=== PATIENT | male | born 1945 | race Caucasian/White ===

== ENCOUNTER 2018-10-08 14:27 | Inpatient (IN) | payer MEDICARE, BC ==
[2018-10-08 15:15] LABS: VENOUS BASE EXCESS -0.3 (-2.0-2.0); VENOUS HCO3 25.7 MEQ/L (23.0-27.0); VENOUS O2 SATURATION 63.1 % (60.0-80.0); VENOUS PARTIAL PRESSURE CO2 47.6 mmHg (38.0-50.0); VENOUS PARTIAL PRESSURE O2 37.6 mmHg (30.0-50.0); VENOUS PH 7.351 UNITS (7.330-7.430); VENOUS STANDARD HCO3 23.4 MEQ/L; VENOUS TOTAL CO2 27.2 MEQ/L (24.0-28.0)
[2018-10-08 15:23] LABS: EOS # 0.2 10^3/uL (0.0-0.50); EOS % 4.8 % (0.0-3.0); HEMATOCRIT 39.8 % (42.0-52.0); HEMOGLOBIN 12.9 g/dl (13.5-17.5); IMMATURE GRANULOCYTE % 0.6 % (0-3.0); LYMPH # 0.9 10^3/uL (1.5-4.5); LYMPH % 29.2 % (24.0-44.0); MEAN CORPUSCULAR HEMOGLOBIN 30.1 pg (27.0-33.0); MEAN CORPUSCULAR HGB CONC 32.4 g/dl (32.0-36.5); MONO # 0.4 10^3/uL (0.0-0.8); MONO % 12.4 % (0.0-5.0); NEUTROPHILS # 1.6 10^3/uL (1.8-7.7); RED BLOOD COUNT 4.28 10^6/uL (4.30-6.10); RED CELL DISTRIBUTION WIDTH 17.7 % (11.5-14.5); WHITE BLOOD COUNT 3.2 10^3/uL (4.0-10.0)
[2018-10-08 15:32] LABS: PROTHROMBIN TIME 15.4 SECONDS (12.1-14.4)
[2018-10-08 15:47] LABS: PLATELET COUNT, AUTOMATED 68 10^3/uL (150-450)
[2018-10-08 15:49] LABS: IMMATURE PLATELET FRACTION % 2.8 % (0.0-10.9)
[2018-10-08 15:51] LABS: LACTIC ACID SEPSIS PROTOCOL 2.5 MMOL/L (0.4-2.0)
[2018-10-08 15:53] LABS: ALBUMIN 3.1 GM/DL (3.2-5.2); ALBUMIN/GLOBULIN RATIO 0.79 (1.00-1.93); ALKALINE PHOSPHATASE 110 U/L (45-117); ALT/SGPT 41 U/L (12-78); ANION GAP 7 MEQ/L (8-16); AST/SGOT 49 U/L (7-37); BILIRUBIN,DIRECT 0.3 MG/DL (0.0-0.2); BILIRUBIN,TOTAL 0.7 MG/DL (0.2-1.0); BLOOD UREA NITROGEN 6 MG/DL (7-18); CALCIUM LEVEL 8.3 MG/DL (8.8-10.2); CARBON DIOXIDE LEVEL 27 MEQ/L (21-32); CHLORIDE LEVEL 95 MEQ/L (98-107); CPK CREATINE PHOSPHOKINASE 53 U/L (39-308); CREATININE FOR GFR 0.66 MG/DL (0.70-1.30); GLOMERULAR FILTRATION RATE > 60.0 (>42); GLUCOSE, FASTING 214 MG/DL (70-100); POTASSIUM SERUM 4.5 MEQ/L (3.5-5.1); SODIUM LEVEL 129 MEQ/L (136-145); THYROXINE (T4) 6.3 UG/DL (4.5-12.0); TROPONIN I < 0.02 NG/ML (< 0.10)
[2018-10-08] MEDS: LevoFLOXacin IV 750 MG in APPROPRIATE DILUENT 1 EA IV (15:56)
[2018-10-08] MEDS: NS IV (16:02)
[2018-10-08] MEDS: DILUENT IV (16:02)
[2018-10-08] MEDS ORDERED: ISOVUE-370 76% 100ML VIAL (Q9967) As Ordered (16:10)
[2018-10-08] MEDS: metFORMIN XR 500MG TAB *GLUCOPHAGE XR PO (18:00)
[2018-10-08] MEDS: NS 1,000 ML IV (18:30)
[2018-10-08] MEDS ORDERED: methylPREDNISolone INJ 125 MG/2 ML VIAL (J2930) IV (19:15)
[2018-10-08] MEDS ORDERED: PIPERACILLIN/TAZOBACTAM SOD 3.375 GM in D5W MINI-BAG PLUS 50 ML IV (19:15)
[2018-10-08] MEDS: ACETAMINOPHEN TAB 650MG DOSE (2X325MG) PO (20:28)
[2018-10-08] MEDS: methylPREDNISolone INJ 125 MG/2 ML VIAL (J2930) IV (22:26)
[2018-10-08] MEDS: PIPERACILLIN/TAZOBACTAM SOD 3.375 GM in D5W MINI-BAG PLUS 50 ML IV (22:28)
[2018-10-08] MEDS: OMEGA-3 1000MG CAPSULE PO (22:36)
[2018-10-09 00:31] LABS: LACTIC ACID SEPSIS PROTOCOL 1.4 MMOL/L (0.4-2.0)
[2018-10-09 00:36] LABS: BASO % 0.8 % (0.0-1.0); EOS # 0.1 10^3/uL (0.0-0.50); EOS % 3.1 % (0.0-3.0); HEMATOCRIT 38.7 % (42.0-52.0); HEMOGLOBIN 12.7 g/dl (13.5-17.5); IMMATURE GRANULOCYTE % 0.4 % (0-3.0); LYMPH # 0.4 10^3/uL (1.5-4.5); LYMPH % 14.2 % (24.0-44.0); MEAN CORPUSCULAR HEMOGLOBIN 30.1 pg (27.0-33.0); MEAN CORPUSCULAR HGB CONC 32.8 g/dl (32.0-36.5); MEAN CORPUSCULAR VOLUME 91.7 fl (80.0-96.0); MONO # 0.1 10^3/uL (0.0-0.8); MONO % 5.1 % (0.0-5.0); NEUTROPHILS # 1.9 10^3/uL (1.8-7.7); NEUTROPHILS % 76.4 % (36.0-66.0); RED BLOOD COUNT 4.22 10^6/uL (4.30-6.10); RED CELL DISTRIBUTION WIDTH 17.5 % (11.5-14.5); WHITE BLOOD COUNT 2.5 10^3/uL (4.0-10.0)
[2018-10-09 00:37] LABS: PLATELET COUNT, AUTOMATED 60 10^3/uL (150-450)
[2018-10-09 00:41] LABS: ANION GAP 7 MEQ/L (8-16); BLOOD UREA NITROGEN 6 MG/DL (7-18); CALCIUM LEVEL 7.9 MG/DL (8.8-10.2); CARBON DIOXIDE LEVEL 27 MEQ/L (21-32); CHLORIDE LEVEL 99 MEQ/L (98-107); CREATININE FOR GFR 0.64 MG/DL (0.70-1.30); GLOMERULAR FILTRATION RATE > 60.0 (>42); GLUCOSE, FASTING 272 MG/DL (70-100); POTASSIUM SERUM 4.7 MEQ/L (3.5-5.1); RHEUMATOID FACTOR QUANT < 10.0 IU/ML (<15.0); SODIUM LEVEL 133 MEQ/L (136-145)
[2018-10-09 01:05] LABS: ERYTHROCYTE SEDIMENTATION RATE 6 mm/hr (0-20)
[2018-10-09] MEDS: PIPERACILLIN/TAZOBACTAM SOD 3.375 GM in D5W MINI-BAG PLUS 50 ML IV ×4 (03:23→21:58)
[2018-10-09] MEDS: NS 1,000 ML IV (04:30)
[2018-10-09] MEDS: methylPREDNISolone INJ 125 MG/2 ML VIAL (J2930) IV ×3 (05:42→21:58)
[2018-10-09] MEDS ORDERED: GLUCAGON FOR INJ 1 MG VIAL (J1610) SC (08:15)
[2018-10-09] MEDS ORDERED: GLUCOSE 4 GM CHEW TABLET PO (08:15)
[2018-10-09] MEDS ORDERED: DEXTROSE 50% 50 ML SYRINGE IV (08:15)
[2018-10-09 08:46] LABS: RETIC HEMOGLOBIN EQUIVALENT 33.4 pg (24-36); RETICULOCYTE # 105.9 10^9/L (17-77); RETICULOCYTE % 2.5 % (0.5-1.5)
[2018-10-09] MEDS: OMEGA-3 1000MG CAPSULE PO ×3 (08:51→21:57)
[2018-10-09] MEDS: IRBESARTAN 150 MG TAB PO (08:51)
[2018-10-09 08:52] LABS: REASON FOR REVIEW PLATELET MORPHOLOGY; SLIDE REVIEW Report; SOURCE PERIPHERAL SMEAR
[2018-10-09] MEDS: CALCIUM GLUCONATE 1,000 MG in D5W MINI-BAG PLUS 100 ML IV (08:52)
[2018-10-09] MEDS: ATORVASTATIN 10 MG TAB PO (08:52)
[2018-10-09] MEDS: FUROSEMIDE 40 MG/4 ML VIAL (J1940) IV (08:52)
[2018-10-09] MEDS: OMEPRAZOLE 20 MG CAP PO (08:52)
[2018-10-09] MEDS: ENOXAPARIN 40 MG/0.4 ML SYRINGE (J1650) SC (08:52)
[2018-10-09 09:09] LABS: LDH LACTATE DEHYDROGENASE 250 U/L (87-241)
[2018-10-09 11:59] LABS: BEDSIDE GLUCOSE 391 MG/DL (83-110)
[2018-10-09] MEDS: HumaLOG INSULIN (NovoLOG) PER UNIT SC ×3 (12:50→22:11)
[2018-10-09] MEDS: diazePAM 5 MG TAB PO (15:44)
[2018-10-09 17:24] LABS: BEDSIDE GLUCOSE 384 MG/DL (83-110)
[2018-10-09 18:47] LABS: C REACTIVE PROTEIN QUANTITATIV < 0.30 MG/DL (0.00-0.30)
[2018-10-09 18:53] LABS: FERRITIN 24 NG/ML (26-388); IRON (FE) 25 UG/DL (65-175); PERCENT SATURATION 6.3 % (19.7-50.0); TOTAL IRON BINDING CAPACITY 394 UG/DL (250-450)
[2018-10-09 19:08] LABS: VITAMIN B12 LEVEL 1025 PG/ML (247-911)
[2018-10-09 19:09] LABS: FOLATE 13.7 NG/ML (>5.4)
[2018-10-09] MEDS ORDERED: HumaLOG INSULIN (NovoLOG) PER UNIT SC (21:00)
[2018-10-09 22:12] LABS: BEDSIDE GLUCOSE 310 MG/DL (83-110)
[2018-10-10] MEDS: ACETAMINOPHEN TAB 650MG DOSE (2X325MG) PO ×3 (02:44→18:25)
[2018-10-10] MEDS: PIPERACILLIN/TAZOBACTAM SOD 3.375 GM in D5W MINI-BAG PLUS 50 ML IV ×3 (02:45→15:55)
[2018-10-10] MEDS: methylPREDNISolone INJ 125 MG/2 ML VIAL (J2930) IV (05:09)
[2018-10-10 05:44] LABS: HEMATOCRIT 38.7 % (42.0-52.0); HEMOGLOBIN 12.6 g/dl (13.5-17.5); MEAN CORPUSCULAR HEMOGLOBIN 29.7 pg (27.0-33.0); MEAN CORPUSCULAR HGB CONC 32.6 g/dl (32.0-36.5); MEAN CORPUSCULAR VOLUME 91.3 fl (80.0-96.0); RED BLOOD COUNT 4.24 10^6/uL (4.30-6.10); RED CELL DISTRIBUTION WIDTH 17.4 % (11.5-14.5); WHITE BLOOD COUNT 7.5 10^3/uL (4.0-10.0)
[2018-10-10 05:47] LABS: IMMATURE PLATELET FRACTION % 2.3 % (0.0-10.9); PLATELET COUNT, AUTOMATED 70 10^3/uL (150-450)
[2018-10-10 06:13] LABS: ANION GAP 8 MEQ/L (8-16); BLOOD UREA NITROGEN 12 MG/DL (7-18); CALCIUM LEVEL 8.1 MG/DL (8.8-10.2); CARBON DIOXIDE LEVEL 27 MEQ/L (21-32); CHLORIDE LEVEL 97 MEQ/L (98-107); CREATININE FOR GFR 0.72 MG/DL (0.70-1.30); GLOMERULAR FILTRATION RATE > 60.0 (>42); GLUCOSE, FASTING 282 MG/DL (70-100); MAGNESIUM LEVEL 1.7 MG/DL (1.8-2.4); POTASSIUM SERUM 4.1 MEQ/L (3.5-5.1); SODIUM LEVEL 132 MEQ/L (136-145)
[2018-10-10 08:06] LABS: HAPTOGLOBIN 73 mg/dL (34-200)
[2018-10-10] MEDS: HumaLOG INSULIN (NovoLOG) PER UNIT SC ×4 (09:17→20:57)
[2018-10-10] MEDS: OMEPRAZOLE 20 MG CAP PO (09:17)
[2018-10-10] MEDS: FERROUS SULFATE 325MG TAB PO (09:17)
[2018-10-10] MEDS: IRBESARTAN 150 MG TAB PO (09:18)
[2018-10-10] MEDS: ATORVASTATIN 10 MG TAB PO (09:18)
[2018-10-10] MEDS: OMEGA-3 1000MG CAPSULE PO ×3 (09:18→20:56)
[2018-10-10] MEDS: ASCORBIC ACID 500 MG TAB PO (09:18)
[2018-10-10] MEDS: MAG SULF 1GM/100ML (MAG RUN) 1 GM in APPROPRIATE DILUENT 1 EA IV (09:18)
[2018-10-10 12:31] LABS: BEDSIDE GLUCOSE 292 MG/DL (83-110)
[2018-10-10] MEDS: methylPREDNISolone INJ 40 MG/1 ML VIAL (J2920) IV ×2 (12:48→20:56)
[2018-10-10] MEDS: diazePAM 5 MG TAB PO (12:50)
[2018-10-10] MEDS: SLF 3 ML SYR IV ×2 (12:50→20:58)
[2018-10-10 14:16] LABS: ANTI SCLERODERMA ANTIBODIES <0.2 AI (0.0-0.9)
[2018-10-10 14:16] LABS: ANTI CENTROMERE ANTIBODY <0.2 AI (0.0-0.9); ANTI DOUBLE STRAND-DNA AB 2 IU/mL (0-9); ANTINUCLEAR ANTIBODIES DIRECT Negative (Negative); SSA SJOGRENS A <0.2 AI (0.0-0.9); SSB SJOGRENS B <0.2 AI (0.0-0.9)
[2018-10-10 17:28] LABS: BEDSIDE GLUCOSE 397 MG/DL (83-110)
[2018-10-10] MEDS: CALCIUM GLUCONATE 1,000 MG in D5W MINI-BAG PLUS 100 ML IV (18:44)
[2018-10-10 20:35] LABS: BEDSIDE GLUCOSE 396 MG/DL (83-110)
[2018-10-10] MEDS: NEFAZODONE PO (20:56)
[2018-10-11] MEDS: ACETAMINOPHEN TAB 650MG DOSE (2X325MG) PO ×3 (02:53→20:10)
[2018-10-11] MEDS: SLF 3 ML SYR IV ×6 (05:17→21:03)
[2018-10-11 06:03] LABS: BEDSIDE GLUCOSE 274 MG/DL (83-110)
[2018-10-11 06:39] LABS: HEMATOCRIT 36.8 % (42.0-52.0); HEMOGLOBIN 11.9 g/dl (13.5-17.5); MEAN CORPUSCULAR HEMOGLOBIN 30.1 pg (27.0-33.0); MEAN CORPUSCULAR HGB CONC 32.3 g/dl (32.0-36.5); MEAN CORPUSCULAR VOLUME 93.2 fl (80.0-96.0); RED BLOOD COUNT 3.95 10^6/uL (4.30-6.10); RED CELL DISTRIBUTION WIDTH 17.5 % (11.5-14.5); WHITE BLOOD COUNT 7.2 10^3/uL (4.0-10.0)
[2018-10-11 06:40] LABS: PLATELET COUNT, AUTOMATED 66 10^3/uL (150-450)
[2018-10-11 06:41] LABS: IMMATURE PLATELET FRACTION % 2.6 % (0.0-10.9)
[2018-10-11 07:00] LABS: ANION GAP 6 MEQ/L (8-16); BLOOD UREA NITROGEN 15 MG/DL (7-18); CALCIUM LEVEL 8.1 MG/DL (8.8-10.2); CARBON DIOXIDE LEVEL 29 MEQ/L (21-32); CHLORIDE LEVEL 97 MEQ/L (98-107); CREATININE FOR GFR 0.61 MG/DL (0.70-1.30); GLOMERULAR FILTRATION RATE > 60.0 (>42); GLUCOSE, FASTING 248 MG/DL (70-100); MAGNESIUM LEVEL 1.8 MG/DL (1.8-2.4); POTASSIUM SERUM 4.5 MEQ/L (3.5-5.1); SODIUM LEVEL 132 MEQ/L (136-145)
[2018-10-11] MEDS: HumaLOG INSULIN (NovoLOG) PER UNIT SC ×4 (09:16→20:11)
[2018-10-11] MEDS: CALCIUM GLUCONATE 1,000 MG in D5W MINI-BAG PLUS 100 ML IV (09:17)
[2018-10-11] MEDS: predniSONE 20 MG TAB PO (09:18)
[2018-10-11] MEDS: OMEPRAZOLE 20 MG CAP PO (09:18)
[2018-10-11] MEDS: OMEGA-3 1000MG CAPSULE PO ×3 (09:19→20:11)
[2018-10-11] MEDS: FERROUS SULFATE 325MG TAB PO (09:19)
[2018-10-11] MEDS: ATORVASTATIN 10 MG TAB PO (09:19)
[2018-10-11] MEDS: MAGNESIUM GLUCONATE 500 MG TAB PO ×2 (09:20→20:10)
[2018-10-11] MEDS: IRBESARTAN 150 MG TAB PO (09:20)
[2018-10-11] MEDS: ASCORBIC ACID 500 MG TAB PO (09:21)
[2018-10-11] MEDS: NEFAZODONE PO ×2 (09:21→20:09)
[2018-10-11 12:05] LABS: BEDSIDE GLUCOSE 290 MG/DL (83-110)
[2018-10-11] MEDS: FUROSEMIDE 40 MG/4 ML VIAL (J1940) IV (15:59)
[2018-10-11 16:38] LABS: NT-PRO BNP 314 PG/ML (<125)
[2018-10-11 16:54] LABS: BEDSIDE GLUCOSE 402 MG/DL (83-110)
[2018-10-11 19:58] LABS: BEDSIDE GLUCOSE 363 MG/DL (83-110)
[2018-10-12] MEDS: ACETAMINOPHEN TAB 650MG DOSE (2X325MG) PO ×3 (00:55→22:20)
[2018-10-12] MEDS: SLF 3 ML SYR IV ×4 (04:00→22:22)
[2018-10-12 05:57] LABS: MEAN CORPUSCULAR HEMOGLOBIN 29.8 pg (27.0-33.0); MEAN CORPUSCULAR HGB CONC 32.4 g/dl (32.0-36.5); MEAN CORPUSCULAR VOLUME 91.8 fl (80.0-96.0); RED BLOOD COUNT 4.03 10^6/uL (4.30-6.10); RED CELL DISTRIBUTION WIDTH 17.6 % (11.5-14.5); WHITE BLOOD COUNT 5.6 10^3/uL (4.0-10.0)
[2018-10-12 06:09] LABS: PLATELET COUNT, AUTOMATED 54 10^3/uL (150-450); POS COUNT POS FLAG
[2018-10-12 06:23] LABS: ANION GAP 6 MEQ/L (8-16); BLOOD UREA NITROGEN 16 MG/DL (7-18); CALCIUM LEVEL 7.9 MG/DL (8.8-10.2); CARBON DIOXIDE LEVEL 31 MEQ/L (21-32); CHLORIDE LEVEL 96 MEQ/L (98-107); CREATININE FOR GFR 0.67 MG/DL (0.70-1.30); GLOMERULAR FILTRATION RATE > 60.0 (>42); GLUCOSE, FASTING 190 MG/DL (70-100); MAGNESIUM LEVEL 1.8 MG/DL (1.8-2.4); POTASSIUM SERUM 4.2 MEQ/L (3.5-5.1); SODIUM LEVEL 133 MEQ/L (136-145)
[2018-10-12] MEDS ORDERED: CALCIUM CARBONATE 500 MG CHEW U/D PO (08:00)
[2018-10-12] MEDS: OMEPRAZOLE 20 MG CAP PO (09:14)
[2018-10-12] MEDS: ASCORBIC ACID 500 MG TAB PO (09:14)
[2018-10-12] MEDS: ATORVASTATIN 10 MG TAB PO (09:14)
[2018-10-12] MEDS: OMEGA-3 1000MG CAPSULE PO ×3 (09:14→22:19)
[2018-10-12] MEDS: MAGNESIUM GLUCONATE 500 MG TAB PO ×2 (09:15→22:20)
[2018-10-12] MEDS: predniSONE 20 MG TAB PO (09:15)
[2018-10-12] MEDS: FERROUS SULFATE 325MG TAB PO (09:15)
[2018-10-12] MEDS: IRBESARTAN 150 MG TAB PO (09:15)
[2018-10-12] MEDS: NEFAZODONE PO ×2 (09:15→21:00)
[2018-10-12] MEDS: HumaLOG INSULIN (NovoLOG) PER UNIT SC ×4 (09:16→22:50)
[2018-10-12] MEDS: diazePAM 5 MG TAB PO ×3 (09:18→22:20)
[2018-10-12 12:34] LABS: BEDSIDE GLUCOSE 258 MG/DL (83-110)
[2018-10-12 17:32] LABS: BEDSIDE GLUCOSE 291 MG/DL (83-110)
[2018-10-12] MEDS: MULTIVITAMINS/MINERALS THERAP 1 TAB PO (18:24)
[2018-10-12] MEDS: THIAMINE 100 MG TAB PO (18:25)
[2018-10-12 22:16] LABS: BEDSIDE GLUCOSE 280 MG/DL (83-110)
[2018-10-12] MEDS: CALCIUM CARBONATE 500 MG CHEW U/D PO (22:21)
[2018-10-12] MEDS: RESTASIS (PATIENT'S OWN MED) OU (23:06)
[2018-10-13 05:17] LABS: HEMOGLOBIN 12.3 g/dl (13.5-17.5); MEAN CORPUSCULAR HEMOGLOBIN 29.9 pg (27.0-33.0); MEAN CORPUSCULAR HGB CONC 32.4 g/dl (32.0-36.5); MEAN CORPUSCULAR VOLUME 92.5 fl (80.0-96.0); PLATELET COUNT, AUTOMATED 55 10^3/uL (150-450); RED BLOOD COUNT 4.11 10^6/uL (4.30-6.10); RED CELL DISTRIBUTION WIDTH 17.2 % (11.5-14.5); WHITE BLOOD COUNT 4.1 10^3/uL (4.0-10.0)
[2018-10-13 05:18] LABS: IMMATURE PLATELET FRACTION % 2.3 % (0.0-10.9)
[2018-10-13 05:40] LABS: ANION GAP 6 MEQ/L (8-16); BLOOD UREA NITROGEN 14 MG/DL (7-18); CALCIUM LEVEL 8.6 MG/DL (8.8-10.2); CARBON DIOXIDE LEVEL 30 MEQ/L (21-32); CHLORIDE LEVEL 97 MEQ/L (98-107); GLOMERULAR FILTRATION RATE > 60.0 (>42); GLUCOSE, FASTING 173 MG/DL (70-100); MAGNESIUM LEVEL 1.9 MG/DL (1.8-2.4); POTASSIUM SERUM 4.1 MEQ/L (3.5-5.1); SODIUM LEVEL 133 MEQ/L (136-145)
[2018-10-13] MEDS: SLF 3 ML SYR IV ×3 (05:45→21:10)
[2018-10-13] MEDS: predniSONE 10 MG TAB PO (08:38)
[2018-10-13] MEDS: ACETAMINOPHEN TAB 650MG DOSE (2X325MG) PO ×3 (08:38→23:57)
[2018-10-13] MEDS: NEFAZODONE PO ×2 (08:38→21:14)
[2018-10-13] MEDS: THIAMINE 100 MG TAB PO (08:39)
[2018-10-13] MEDS: MULTIVITAMINS/MINERALS THERAP 1 TAB PO (08:39)
[2018-10-13] MEDS: ASCORBIC ACID 500 MG TAB PO (08:39)
[2018-10-13] MEDS: MAGNESIUM GLUCONATE 500 MG TAB PO ×2 (08:39→21:10)
[2018-10-13] MEDS: diazePAM 5 MG TAB PO ×2 (08:39→21:15)
[2018-10-13] MEDS: CALCIUM CARBONATE 500 MG CHEW U/D PO ×2 (08:39→21:09)
[2018-10-13] MEDS: RESTASIS (PATIENT'S OWN MED) OU ×2 (08:40→21:11)
[2018-10-13] MEDS: FERROUS SULFATE 325MG TAB PO (08:40)
[2018-10-13] MEDS: OMEPRAZOLE 20 MG CAP PO (08:40)
[2018-10-13] MEDS: ATORVASTATIN 10 MG TAB PO (08:40)
[2018-10-13] MEDS: OMEGA-3 1000MG CAPSULE PO ×3 (08:40→21:10)
[2018-10-13] MEDS: IRBESARTAN 150 MG TAB PO (08:40)
[2018-10-13] MEDS: HumaLOG INSULIN (NovoLOG) PER UNIT SC ×4 (08:41→21:09)
[2018-10-13 08:45] LABS: ALBUMIN 2.7 GM/DL (3.2-5.2)
[2018-10-13] MEDS ORDERED: FUROSEMIDE 40 MG TAB PO (16:45)
[2018-10-13 17:09] LABS: BEDSIDE GLUCOSE 348 MG/DL (83-110)
[2018-10-13 17:49] LABS: LIPASE 187 U/L (73-393)
[2018-10-13 20:39] LABS: BEDSIDE GLUCOSE 336 MG/DL (83-110)
[2018-10-13] MEDS: predniSONE 20 MG TAB PO (21:09)
[2018-10-13 22:10] LABS: ABG HCO3 28.9 MEQ/L (22.0-26.0); ABG O2 SATURATION 89.5 % (95.0-99.0); ABG PARTIAL PRESSURE CO2 44.7 mmHg (35.0-45.0); ABG PARTIAL PRESSURE O2 60.9 mmHg (75.0-100.0); ABG STANDARD HCO3 27.9 MEQ/L (22.0-26.0); ABG TOTAL CO2 30.3 MEQ/L (23.0-31.0); ABG pH (ARTERIAL) 7.429 UNITS (7.350-7.450)
[2018-10-14 04:59] LABS: HEMATOCRIT 39.7 % (42.0-52.0); HEMOGLOBIN 12.9 g/dl (13.5-17.5); MEAN CORPUSCULAR HGB CONC 32.5 g/dl (32.0-36.5); MEAN CORPUSCULAR VOLUME 92.3 fl (80.0-96.0); PLATELET COUNT, AUTOMATED 55 10^3/uL (150-450); RED CELL DISTRIBUTION WIDTH 17.2 % (11.5-14.5); WHITE BLOOD COUNT 3.9 10^3/uL (4.0-10.0)
[2018-10-14 05:21] LABS: ANION GAP 7 MEQ/L (8-16); BLOOD UREA NITROGEN 15 MG/DL (7-18); CALCIUM LEVEL 8.2 MG/DL (8.8-10.2); CARBON DIOXIDE LEVEL 29 MEQ/L (21-32); CHLORIDE LEVEL 97 MEQ/L (98-107); CREATININE FOR GFR 0.56 MG/DL (0.70-1.30); GLOMERULAR FILTRATION RATE > 60.0 (>42); GLUCOSE, FASTING 232 MG/DL (70-100); MAGNESIUM LEVEL 1.8 MG/DL (1.8-2.4); POTASSIUM SERUM 4.4 MEQ/L (3.5-5.1); SODIUM LEVEL 133 MEQ/L (136-145)
[2018-10-14] MEDS: SLF 3 ML SYR IV ×3 (06:00→20:27)
[2018-10-14] MEDS: IRBESARTAN 150 MG TAB PO (09:25)
[2018-10-14] MEDS: ASCORBIC ACID 500 MG TAB PO (09:25)
[2018-10-14] MEDS: MULTIVITAMINS/MINERALS THERAP 1 TAB PO (09:25)
[2018-10-14] MEDS: ATORVASTATIN 10 MG TAB PO (09:25)
[2018-10-14] MEDS: predniSONE 20 MG TAB PO ×2 (09:25→20:25)
[2018-10-14] MEDS: THIAMINE 100 MG TAB PO (09:25)
[2018-10-14] MEDS: OMEGA-3 1000MG CAPSULE PO ×3 (09:26→20:24)
[2018-10-14] MEDS: FERROUS SULFATE 325MG TAB PO (09:26)
[2018-10-14] MEDS: OMEPRAZOLE 20 MG CAP PO (09:26)
[2018-10-14] MEDS: NEFAZODONE PO ×2 (09:26→20:26)
[2018-10-14] MEDS: CALCIUM CARBONATE 500 MG CHEW U/D PO ×2 (09:26→20:27)
[2018-10-14] MEDS: MAGNESIUM GLUCONATE 500 MG TAB PO ×2 (09:26→20:25)
[2018-10-14] MEDS: HumaLOG INSULIN (NovoLOG) PER UNIT SC ×4 (09:27→20:25)
[2018-10-14] MEDS: RESTASIS (PATIENT'S OWN MED) OU ×2 (09:27→20:26)
[2018-10-14] MEDS: diazePAM 5 MG TAB PO ×2 (09:39→18:48)
[2018-10-14] MEDS: ACETAMINOPHEN TAB 650MG DOSE (2X325MG) PO ×3 (09:39→23:27)
[2018-10-14 12:31] LABS: BEDSIDE GLUCOSE 227 MG/DL (83-110)
[2018-10-14 18:35] LABS: BEDSIDE GLUCOSE 304 MG/DL (83-110)
[2018-10-14] MEDS: FOLIC ACID 1 MG TAB PO (18:49)
[2018-10-14 20:10] LABS: BEDSIDE GLUCOSE 324 MG/DL (83-110)
[2018-10-15] MEDS: diazePAM 5 MG TAB PO ×2 (01:56→10:01)
[2018-10-15] MEDS: SLF 3 ML SYR IV ×3 (05:17→22:00)
[2018-10-15 05:23] LABS: HEMOGLOBIN 12.8 g/dl (13.5-17.5); MEAN CORPUSCULAR HEMOGLOBIN 30.5 pg (27.0-33.0); MEAN CORPUSCULAR HGB CONC 32.8 g/dl (32.0-36.5); MEAN CORPUSCULAR VOLUME 93.1 fl (80.0-96.0); RED BLOOD COUNT 4.19 10^6/uL (4.30-6.10); RED CELL DISTRIBUTION WIDTH 17.2 % (11.5-14.5); WHITE BLOOD COUNT 5.4 10^3/uL (4.0-10.0)
[2018-10-15 05:27] LABS: PLATELET COUNT, AUTOMATED 52 10^3/uL (150-450)
[2018-10-15 05:28] LABS: IMMATURE PLATELET FRACTION % 3.2 % (0.0-10.9)
[2018-10-15 05:50] LABS: ANION GAP 6 MEQ/L (8-16); BLOOD UREA NITROGEN 17 MG/DL (7-18); CALCIUM LEVEL 8.1 MG/DL (8.8-10.2); CARBON DIOXIDE LEVEL 28 MEQ/L (21-32); CHLORIDE LEVEL 98 MEQ/L (98-107); GLOMERULAR FILTRATION RATE > 60.0 (>42); GLUCOSE, FASTING 271 MG/DL (70-100); MAGNESIUM LEVEL 1.8 MG/DL (1.8-2.4); POTASSIUM SERUM 4.8 MEQ/L (3.5-5.1); SODIUM LEVEL 132 MEQ/L (136-145)
[2018-10-15] MEDS: HumaLOG INSULIN (NovoLOG) PER UNIT SC ×2 (07:30→12:25)
[2018-10-15] MEDS: NEFAZODONE PO (09:30)
[2018-10-15] MEDS: OMEGA-3 1000MG CAPSULE PO ×2 (09:36→15:17)
[2018-10-15] MEDS: CALCIUM CARBONATE 500 MG CHEW U/D PO (09:36)
[2018-10-15] MEDS: THIAMINE 100 MG TAB PO (09:36)
[2018-10-15] MEDS: RESTASIS (PATIENT'S OWN MED) OU ×2 (09:36→21:33)
[2018-10-15] MEDS: OMEPRAZOLE 20 MG CAP PO (09:36)
[2018-10-15] MEDS: ASCORBIC ACID 500 MG TAB PO (09:36)
[2018-10-15] MEDS: MULTIVITAMINS/MINERALS THERAP 1 TAB PO (09:36)
[2018-10-15] MEDS: FOLIC ACID 1 MG TAB PO (09:37)
[2018-10-15] MEDS: FERROUS SULFATE 325MG TAB PO (09:37)
[2018-10-15] MEDS: IRBESARTAN 150 MG TAB PO (09:37)
[2018-10-15] MEDS: MAGNESIUM GLUCONATE 500 MG TAB PO (09:37)
[2018-10-15] MEDS: ATORVASTATIN 10 MG TAB PO (09:37)
[2018-10-15] MEDS: predniSONE 20 MG TAB PO (09:37)
[2018-10-15] MEDS: ACETAMINOPHEN TAB 650MG DOSE (2X325MG) PO ×3 (10:01→22:55)
[2018-10-15 11:39] LABS: BEDSIDE GLUCOSE 251 MG/DL (83-110)
[2018-10-15 17:09] LABS: BEDSIDE GLUCOSE 366 MG/DL (83-110)
[2018-10-15] MEDS ORDERED: SCOPOLAMINE 1MG TRANSDERMAL PATCH TOP (17:30)
[2018-10-15] MEDS: LORazepam 1 MG TAB PO (22:46)
[2018-10-15] MEDS: MORPHINE 10MG/0.5ML ORAL CONCENTRATE SOLUTION U/D SL (23:57)
[2018-10-16] MEDS: LORazepam 1 MG TAB PO (04:05)
[2018-10-16] MEDS: MORPHINE 10MG/0.5ML ORAL CONCENTRATE SOLUTION U/D SL (04:06)
[2018-10-16] MEDS: SLF 3 ML SYR IV (05:34)
[2018-10-16] MEDS ORDERED: ENTER DRUG NAME HERE (PATIENT'S OWN MED) PO (09:00)
[2018-10-16] MEDS: RESTASIS (PATIENT'S OWN MED) OU (09:00)
[2018-10-16] MEDS: diazePAM 5 MG TAB PO (10:31)
[2018-10-16] MEDS: ACETAMINOPHEN TAB 650MG DOSE (2X325MG) PO (10:31)
== END 2018-10-16 14:45 | disposition hospice, home (50) | DRG 196 ==
LOC: M PCU 10-14 15:14 → M ED 14:27 → M ED INP 18:00 → M PCU 19:58
DX: J84.112 Idiopathic pulmonary fibrosis (principal); J96.01 Acute respiratory failure with hypoxia; E87.1 Hypo-osmolality and hyponatremia; D61.818 Other pancytopenia; I10 Essential (primary) hypertension; E11.9 Type 2 diabetes mellitus without complications; R63.4 Abnormal weight loss; E78.5 Hyperlipidemia, unspecified; F10.20 Alcohol dependence, uncomplicated; Z51.5 Encounter for palliative care; Z66 Do not resuscitate; K21.9 Gastro-esophageal reflux disease without esophagitis; F41.9 Anxiety disorder, unspecified; R13.10 Dysphagia, unspecified; D69.6 Thrombocytopenia, unspecified; M54.5 Low back pain; F32.9 Major depressive disorder, single episode, unspecified; Z87.891 Personal history of nicotine dependence; Z79.84 Long term (current) use of oral hypoglycemic drugs; Z79.899 Other long term (current) drug therapy